=== PATIENT | female | born 1955 | race Caucasian/White ===

== ENCOUNTER 2018-11-15 07:42 | Day surgery (SDC) | payer OTHER ==
[~2018-11-15] VITALS: Ht 162.6 cm; Wt 77.0 kg
[~2018-11-15 07:42] MED LIST: Amlodipine Bes2.5 MG PO; BENADRYL25 MG PO; CYCL10 PO; Desyrel150 MG PO; FENOFIBRATE130 MG PO; IBUP800 PO; LO-DOSE ASPIRIN81 MG PO; LOSARTAN-HCTZ1 EACH PO; LOSARTAN/HCTZ; PRAV20 PO; TRAZ150T57 PO; VITAMIN D22000 UNIT PO; ZOLP5 PO
== END 2018-11-15 10:37 | disposition home or self-care (01) ==
LOC: ORSCSDS 07:42
PROVIDERS: Internal Medicine Gastroenterology
PROC: 0DJD8ZZ Inspection of Lower Intestinal Tract, Via Natural or Artificial Opening Endoscopic (ICD-10-PCS; principal; 2018-11-15 09:30)
DX: Z12.11 Encounter for screening for malignant neoplasm of colon (principal); K57.30 Diverticulosis of large intestine without perforation or abscess without bleeding; Z87.19 Personal history of other diseases of the digestive system; I10 Essential (primary) hypertension; M06.9 Rheumatoid arthritis, unspecified; F41.8 Other specified anxiety disorders; E78.5 Hyperlipidemia, unspecified; E11.9 Type 2 diabetes mellitus without complications; Z87.891 Personal history of nicotine dependence; Z79.82 Long term (current) use of aspirin; Z79.899 Other long term (current) drug therapy
CPT/HCPCS: 82947; J2250; J2405; J2704; J7120

== ENCOUNTER → 2022-03-09 | Outpatient (CLI) | payer OTHER | END | disposition home or self-care (01) | LOC: PLD 12:04 → LAB 12:04 → LAB SHORT 12:04 | DX: D48.5 Neoplasm of uncertain behavior of skin (principal) | CPT/HCPCS: 88305 ==

== ENCOUNTER 2023-02-17 07:09 | Day surgery (SDC) | payer OTHER | END 2023-02-17 09:09 | disposition home or self-care (01) | LOC: ORSCSDS 07:09 | PROC: 08RK3JZ Replacement of Left Lens with Synthetic Substitute, Percutaneous Approach (ICD-10-PCS; principal; 2023-02-17) | DX: E11.36 Type 2 diabetes mellitus with diabetic cataract (principal); H25.12 Age-related nuclear cataract, left eye; I10 Essential (primary) hypertension; Z87.891 Personal history of nicotine dependence; Z79.899 Other long term (current) drug therapy ==

== ENCOUNTER 2023-02-24 08:31 | Day surgery (SDC) | payer OTHER ==
[~2023-02-24] VITALS: Ht 165.1 cm; Wt 78.8 kg
[~2023-02-24 08:31] MED LIST changes: +EZETIMIBE10 M6 PO; +NEURONTIN300 MG PO
--- NOTE | 2023-02-24 09:03 | NUR ---
02/24/23 0903 Lety RodriguezCAINE TO THE RIGHT EYE AT 0901 PLEDGET TO THE RIGHT EYE AT 0902 BY [facility]
[2023-02-24 10:09] VITALS: BP 137/63
--- NOTE | 2023-02-24 10:15 | NUR ---
02/24/23 1015 Emily Greene IV REMOVED, CANNULA INTACT. PT FLORINDA WELL. PT DENIES NAUSEA AND PAIN
== END 2023-02-24 10:24 | disposition home or self-care (01) ==
LOC: ORSCSDS 08:31
PROVIDERS: Ophthalmology
PROC: 08RJ3JZ Replacement of Right Lens with Synthetic Substitute, Percutaneous Approach (ICD-10-PCS; principal; 2023-02-24 10:00)
DX: E11.36 Type 2 diabetes mellitus with diabetic cataract (principal); H25.11 Age-related nuclear cataract, right eye; Z96.1 Presence of intraocular lens; I10 Essential (primary) hypertension; Z87.891 Personal history of nicotine dependence; Z79.899 Other long term (current) drug therapy
CPT/HCPCS: 82947; J2250; J3010; J3301; J7040; V2632